=== PATIENT | male | born 1990 | race Caucasian/White ===

== ENCOUNTER 2017-09-09 23:39 | Emergency (ER) | payer SELFPAY ==
[2017-09-10 00:22] VITALS: BMI 30.2
--- NOTE | 2017-09-10 02:56 | PDOC ---
History of Present Illness - General Chief Complaint: Injury Stated Complaint: INJURY Time Seen by Provider: 09/10/17 02:31 - History of Present Illness Initial Comments: 09/10/17 03:10 Patient is a 26-year-old male no past medical history, who presents emergency department today complaining of swollen and deformed nose. Patient states that he walked into a glass door yesterday at a museum in [facility]. He did not see any provider at that time. He states there was some bleeding coming from the right nostril but it is since resolved. He is concerned that it is broken. Denies fevers, chills, rhinorrhea, nasal bleeding, sinus pain, hearing changes, visual changes, headache. Past History - Travel Traveled outside of the country in the last 30 days: No Close contact w/someone who was outside of country & ill: No - Past Medical History Allergies/Adverse Reactions: Allergies Allergy/AdvReac Type Severity Reaction Status Date / Time No Known Allergies Allergy Verified 09/10/17 03:31 Home Medications: Ambulatory Orders NK [No Known Home Medication] 09/10/17 COPD: No - Suicide/Smoking/Psychosocial Hx Smoking History: Never smoked Have you smoked in the past 12 months: No Information on smoking cessation initiated: No Hx Alcohol Use: No Drug/Substance Use Hx: No Substance Use Type: None Review of Systems - Review of Systems Able to Perform ROS?: Yes Comments:: 09/10/17 07:11 CONSTITUTIONAL: Absent: fever, chills, diaphoresis, generalized weakness, malaise, loss of appetite HEENT: Absent: rhinorrhea, nasal congestion, throat pain, throat swelling, difficulty swallowing, mouth swelling, ear pain, eye pain, visual Changes CARDIOVASCULAR: Absent: chest pain, loss of consciousness, palpitations, irregular heart rate, peripheral edema RESPIRATORY: Absent: cough, shortness of breath, dyspnea with exertion, orthopnea, wheezing, stridor, hemoptysis GASTROINTESTINAL: Absent: abdominal pain, abdominal distension, nausea, vomiting, diarrhea, constipation, melena, hematochezia GENITOURINARY: Absent: dysuria, frequency, urgency, hesitancy, hematuria, flank pain, genital pain MUSCULOSKELETAL: Absent: myalgia, arthralgia, joint swelling SKIN: Absent: rash, itching, pallor HEMATOLOGIC/IMMUNOLOGIC: Absent: easy bleeding, easy bruising, lymphadenopathy, frequent infections ENDOCRINE: Absent: unexplained weight gain, unexplained weight loss, heat intolerance, cold intolerance NEUROLOGIC: Absent: headache, focal weakness or paresthesias, dizziness, unsteady gait, seizure, mental status changes, bladder or bowel incontinence PSYCHIATRIC: Absent: anxiety, depression, suicidal or homicidal ideation, hallucinations. Is the patient limited Kyrgyz proficient: No *Physical Exam - Vital Signs Last Vital Signs Temp Pulse Resp BP Pulse Ox 98.1 F 77 18 134/82 100 09/10/17 00:16 09/10/17 00:16 09/10/17 00:16 09/10/17 00:16 09/10/17 00:16 - Physical Exam Comments: 09/10/17 07:13 GENERAL: Well developed, well nourished. Awake and alert. No acute distress. HEENT: Normocephalic, atraumatic. PERRLA, EOMI. No conjunctival pallor. Sclera are non- icteric. Moist mucous membranes. Oropharynx is clear. NECK: Supple. Full ROM. No JVD. Carotid pulses 2+ and symmetric, without bruits. No thyromegaly. No lymphadenopathy. CARDIOVASCULAR: Regular rate and rhythm. No murmurs, rubs, or gallops. Distal pulses are 2+ and symmetric. PULMONARY: No evidence of respiratory distress. Lungs clear to auscultation bilaterally. No wheezing, rales or rhonchi. ABDOMINAL: Soft. Non-tender. Non-distended. No rebound or guarding. No organomegaly. Normoactive bowel sounds. MUSCULOSKELETAL Normal range of motion at all joints. No bony deformities or tenderness. No CVA tenderness. EXTREMITIES: No cyanosis. No clubbing. No edema. No calf tenderness. SKIN: Warm and dry. Normal capillary refill. No rashes. No jaundice. NEUROLOGICAL: Alert, awake, appropriate. Cranial nerves 2-12 intact. No deficits to light touch and temperature in face, upper extremities and lower extremities. No motor deficits in the in face, upper extremities and lower extremities. Normoreflexic in the upper and lower extremities. Normal speech. Toes are down- going bilaterally. Gait is normal without ataxia. PSYCHIATRIC: Cooperative. Good eye contact. Appropriate mood and affect. Medical Decision Making - Medical Decision Making 09/10/17 03:13 Patient is a 26-year-old male no past medical history who presents emergency Department with 1 day of nasal pain. Gross swelling and mild deviation on exam consistent with possible nasal fracture. We'll obtain facial bone CT. Percocet given for pain. Reevaluate 09/10/17 07:02 Sign out given to SANDI Eduardo. Patient currently pending read of his head CT. *DC/Admit/Observation/Transfer - Discharge Dispostion Disposition: HOME Condition at time of disposition: Stable Admit: No - Referrals Referrals: Luke Morel MD [Staff Physician] - - Patient Instructions - Post Discharge Activity
--- NOTE | 2017-09-10 07:24 | PDOC ---
*Physical Exam - Vital Signs Last Vital Signs Temp Pulse Resp BP Pulse Ox 98.1 F 77 18 134/82 100 09/10/17 00:16 09/10/17 00:16 09/10/17 00:16 09/10/17 00:16 09/10/17 00:16 - Physical Exam General Appearance: Yes: Appropriately Dressed. No: Apparent Distress HEENT: positive: Normal Voice, Other (minimal sweling to nasal bridge, no e/o septal hematoma) Neck: positive: Supple Respiratory/Chest: negative: Respiratory Distress Integumentary: positive: Dry, Warm Neurologic: positive: Fully Oriented, Alert, Normal Mood/Affect ED Treatment Course - Medications Given in the ED: ED Medications Discontinued Medications Generic Name Dose Route Start Last Admin Trade Name Freq PRN Reason Stop Dose Admin Oxycodone/Acetaminophen 1 combo 09/10/17 02:55 09/10/17 03:33 Percocet 5/325 - PO 09/10/17 02:56 1 combo ONCE ONE Administration Medical Decision Making - Medical Decision Making 09/10/17 07:23 Pt signed out to me by SANDI Lora 26 yo M, no sig hx, p/w nasal deformity after walking into glass door. CT pending. 09/10/17 08:44 CT read as negative for fracture or other facial abnormalities. Patient stable for discharge with Motrin as needed for pain *DC/Admit/Observation/Transfer Diagnosis at time of Disposition: Nasal injury Qualifiers: Encounter type: initial encounter Qualified Code(s): S09.92XA - Unspecified injury of nose, initial encounter - Discharge Dispostion Disposition: HOME Condition at time of disposition: Stable - Referrals Referrals: Luke Morel MD [Staff Physician] - - Patient Instructions Additional Instructions: Hernandez tomografa computarizada no mostr ninguna fractura [place] motrin para el dolor segn sea necesario Por favor mallory un seguimiento con hernandez PMD - Post Discharge Activity
[2017-09-10 08:54] VITALS: BP 128/78; PULSE 81; TEMP 98
== END 2017-09-10 08:54 | disposition home or self-care (01) ==
LOC: JER 23:39
DX: S09.92XA Unspecified injury of nose, initial encounter (principal); W22.09XA Striking against other stationary object, initial encounter; Y92.251 Museum as the place of occurrence of the external cause; Y99.8 Other external cause status; Y93.01 Activity, walking, marching and hiking
CPT/HCPCS: 70486-TC; 99282-25